=== PATIENT | male | born 1965 | race Caucasian/White ===

== ENCOUNTER 2025-02-10 07:45 | Outpatient (CLI) | payer OTHER | END 2025-02-10 07:46 | disposition home or self-care (01) | LOC: ULT 07:45 | PROVIDERS: ATTEND Internal Medicine Nephrology | DX: I12.9 Hypertensive chronic kidney disease with stage 1 through stage 4 chronic kidney disease, or unspecified chronic kidney disease (principal); N18.30 Chronic kidney disease, stage 3 unspecified; Q61.9 Cystic kidney disease, unspecified | CPT/HCPCS: 76770; 93976 ==

== ENCOUNTER 2025-03-03 09:16 | Outpatient (CLI) | payer OTHER ==
[2025-03-03 09:45] LABS: Estimated GFR - POC 28.0
== END 2025-03-03 09:17 | disposition home or self-care (01) ==
LOC: SCSMRI 09:16
PROVIDERS: ATTEND Internal Medicine Nephrology
DX: N18.9 Chronic kidney disease, unspecified (principal); Q61.9 Cystic kidney disease, unspecified
CPT/HCPCS: 74183; 82565